=== PATIENT | male | born 1965 | race Caucasian/White ===

== ENCOUNTER → 2023-03-20 09:46 | Outpatient (REF) | payer BC, SELFPAY | LOC: RCS 09:46 | PROVIDERS: ATTENDING PHYSICIAN Internal Medicine Cardiovascular Disease; FAMILY PHYSICIAN Family Medicine | DX: I48.91 Unspecified atrial fibrillation (principal) | CPT/HCPCS: 93017; 93350 ==

== ENCOUNTER 2023-12-30 10:04 | Day surgery (SDC) | payer BC, SELFPAY ==
[2023-12-18 12:07] VITALS: BMI 26.9
[2023-12-18 12:31] LABS: % Eosinophils 1.5 % (0-6); % Immature Granulocytes 0.2 % (0-0.5); % Lymphocytes 40.1 % (20.5-51.1); % Neutrophils 47.2 % (42.2-75.2); Absolute Eosinophils 0.1 10^3/uL (0-0.7); Absolute Lymphocytes 1.6 10^3/uL (1.2-3.4); Absolute Monocytes 0.4 10^3/uL (0.1-0.6); Absolute Neutrophils 1.9 10^3/uL (1.4-6.5); Hematocrit 41.5 % (39.0-52.0); Hemoglobin 14.1 g/dL (13.0-18.0); Mean Corpuscular Volume 94.3 fL (80.0-94.0); Mean Platelet Volume 10.7 fL (7.4-10.4); Nucleated Red Blood Cells % 0 % (-); Platelet Count 149 10^3/uL (130-400); Red Cell Dist. Width 11.9 % (11.5-14.5); White Blood Cell Count 4.1 10^3/uL (4.8-10.8)
[2023-12-18 12:40] LABS: PT 14.3 Sec (11.4-14.6)
[2023-12-18 12:50] LABS: ALT (SGPT) 59 U/L (0-50); AST (SGOT) 46 U/L (17-59); Albumin 4.5 g/dl (3.5-5.0); Alkaline Phosphatase 45 U/L (38-126); Blood Urea Nitrogen 27 mg/dl (9-20); Calcium 10.2 mg/dl (8.4-10.2); Carbon Dioxide 30 mmol/L (22-30); Chloride 101 mmol/L (98-107); Estimated Creatinine Clearance 102 ml/min; Glucose 102 mg/dl (70-99); Potassium 5.1 mmol/L (3.5-5.1); Sodium 141 mmol/L (135-145); Total Bilirubin 0.6 mg/dl (0.2-1.3); Total Protein 7.1 g/dl (6.3-8.2); eGFR > 60.00
[2023-12-30] VITALS (8 sets, daily range): BP systolic 109–140; BP diastolic 66–98; BMI 27.3
[2023-12-30 14:16] LABS: ACT-LR - POC 253 Seconds (116-155)
--- NOTE | 2023-12-30 14:16 | W.PN.UPDATE ---
Update Note
Progress Note Update
58 yo WM s/p PVI (same day). He denies cp, sob, elif diet, b/l groins VASCADE/Manual pressure, EKG SR no ectopy. He will continue OAC Eliquis and bisoprolol. Activity restrictions reviewed. He will f/u Dr. Wyman in 3 mo. He is for d/c home after
330p if groins stable and able to void.
[2023-12-30 14:33] LABS: ACT-LR - POC 297 Seconds (116-155)
--- NOTE | 2023-12-30 14:56 | ITS.CL.ABL ---
[employer] - Ablation
Ablation
Procedure Report:
ELECTROPHYSIOLOGY ABLATION STUDY
�
DATE:: December 30, 2023�����������������������������REFERRING: Dr. Curly Wyman
�
INDICATION: Paroxysmal supraventricular tachycardia in the form of atrial fibrillation.��Prior atrial flutter ablation in 2020 at [facility] and prior AF ablation in 2021 at [facility] with Dr. Canseco presents with recurrent atrial fibrillation and atrial flutter
which is typical appearing
�
HISTORY: See H and P.��As above
�
ANTIARRHYTHMIC DRUG: As above
�
PRE-PROCEDURE BRAN: No interatrial thrombus on intracardiac ultrasound
�
PRESENTING RHYTHM: Sinus bradycardia
�
'TIME-OUT':��called and confirmed.
�
SEDATION/ANESTHESIA:��provided via the anesthesia department using general anesthesia (LMA).
�
INTRAVENOUS/ARTERIAL ACCESS:
Right femoral venous - 8Fr
Left femoral venous - 8 Fr, 6 Fr
Vascade vascular closure for bilateral femoral venous sites was fashioned
Ultrasound guidance for bilateral femoral vein access was utilized by me to obtain access with demonstration of normal anatomy
CHADS-VASC Score:
�
HAS-Bled Score
�
PROCEDURE:
1.��A decapolar CS catheter was placed within the CS for mapping and pacing.��This was also used as the reference catheter for the 3-D map. The patient had prior CTI flutter with clinical recurrence of paroxysmal typical appearing slower atrial
flutter and the isthmus was mapped with the multipolar catheter. This demonstrated an area of breakthrough at the mid isthmus in a moderate pouch with a sequential fractionated signal demarcating breakthrough. At baseline intra isthmus conduction
time of approximately 140 ms. Utilizing radiofrequency energy with a 4 mm tactic cath irrigated catheter at 30 W, 42 degrees and 15 seconds lesions from the mid isthmus back 1 cm towards the IVC persistent bidirectional block intra isthmus
conduction time of 185 ms was fashioned which was durable. After this we then proceeded to transseptal puncture.
�
2. The intracardiac ultrasound catheter was positioned in the RA to identify the FO for targeting of transseptal puncture, assist��in identification of the pulmonary vein ostia, monitoring pre and post ablation pulmonary vein flow velocities,
monitoring for 'bubble' formation during RF application as a sign of thermal injury,��and to monitor for pericardial effusion during mapping and ablation procedure.���Left atrial size, LV ejection fraction, and pulmonary vein flows were monitored
pre and post ablation procedure. The other valves were inspected and found to be free of significant regurgitation or stenosis.
�
3.��Half of the calculated heparin bolus was administered prior to the first transeptal puncture.��Transseptal puncture was performed to diagnose RA and LA pressure so that safety of LA mapping and ablation could be further assessed, and to access
the left atrium and pulmonary veins for mapping and ablation.��This entailed advancing an 14 [place] Contour sheath and dilator needle apparatus was brought into the superior vena cava and withdrawing both (monitoring intracardiac ultrasound,
fluoroscopy and tip pressure) with the tip oriented toward the atrial septum.��The fossa ovalis was engaged (indicated by sudden displacement of the sheath tip as well as tenting of the fossa seen on intracardiac ultrasound).��Left atrial access
required a pass with the Brock[place]rough needle extended.��Left atrial catheter position was confirmed by pressure monitoring (RA mean pressure 8 mm Hg and LA mean presure 14 mm Hg), LA saturation (99%),��as well as fluoroscopy.��The sheath was
advanced over the dilator and positioned in the left atrium.��This procedure was repeated for the Agilis sheath.��The remainder of the calculated heparin bolus was administered and heparin was
infused to maintain ACT at 300 -350 seconds throughout the case.
�
4.��RA pacing was performed via the proximal decapolar poles and LA pacing was performed via the distal decapolr poles.
�
5. A quadrapolar catheter was first positioned at the His position for His Bundle recording which was tagged via the 3-D Navex sytem, and then passed to the RVA for RV pacing and recording.
�
6. 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
portion of the left inferior pulmonary vein, roof of the right superior pulmonary vein and mary of the right inferior pulmonary veins were connected. There was APD triggers from the right superior pulmonary vein.
�
7.��Next, a 3-D map was created using Navex.���A 3-D reconstructed CT image was compared to the 3-D Navex map to assist in anatomic interpretation, mapping and ablation.��The CT image and the NavX image were fused.
�
8. A total of 53 lesions were utilized bring about entrance and exit block in all 4 pulmonary veins with additional lesions given in the posterior wall outside of each vein to extend the lesion set to a wide [place] position. Post ablation no
further arrhythmias were noted.
9. As above the prior CTI flutter ablation line had reconnected and was targeted with ablation with RF energy bring about bidirectional block which was mapped with the multipolar grid and coronary sinus pacing. Intra isthmus conduction time at the
end of the procedure was 185 ms with bidirectional block.
�
TOTAL FLOURO TIME: 20.6 minutes to 20.6 mGy
�
TOTAL RF DURATION: 3 minutes
�
REVERSAL OF HEPARIN: 35 mg of protamine, slow IV administration
�
COMPLICATIONS:
None
Intracardiac US shows no pericardial effusion post ablation.
�
SUMMARY:��
Complex left atrial mapping and ablation.
Isolation of all 4 pulmonary veins as above and CTI flutter ablation addressing the reconnection at the mid isthmus. Transseptal puncture was difficult due to prior transseptal access at prior procedure.
�
RECOMMENDATIONS:
1. Admit to monitored bed.��
2. Resume anticoagulation
3.��Out of bed in 2 hours given vascular closure and can consider same-day discharge
4.��Can discontinue flecainide
�
Copy to: Dr. Himanshu Chakraborty
�
--- NOTE | 2023-12-30 16:03 | W.PN.UPDATE ---
Update Note
Progress Note Update
58 yo WM s/p PVI/CTI flutter ablation (Same day). He denies cp, sob, elif diet, mild sore throat, EKG SR, b/l groins VASCADE c/d/i no HT, soft. He will take his Eliquis at 9pm at home tonight. He will continue bisoprolol. Activity restrictions
reviewed. He will f/u Dr. Wyman in 2mo. He is for d/c home after 6pm if groins stable and voiding.
SUMMARY:��
Complex left atrial mapping and ablation.
Isolation of all 4 pulmonary veins as above and CTI flutter ablation addressing the reconnection at the mid isthmus. Transseptal puncture was difficult due to prior transseptal access at prior procedure.
�
RECOMMENDATIONS:
1. Admit to monitored bed.��
2. Resume anticoagulation
3.��Out of bed in 2 hours given vascular closure and can consider same-day discharge
4.��Can discontinue flecainide
�
Copy to: Dr. Himanshu Chakraborty
== END 2023-12-30 17:45 | disposition home or self-care (01) ==
LOC: CATH 10:04
PROVIDERS: ATTENDING PHYSICIAN Internal Medicine Cardiovascular Disease; OTHER PHYSICIAN Internal Medicine Cardiovascular Disease
DX: I48.91 Unspecified atrial fibrillation (principal); I48.3 Typical atrial flutter; G47.33 Obstructive sleep apnea (adult) (pediatric); I45.10 Unspecified right bundle-branch block; I47.19 Other supraventricular tachycardia; Z79.899 Other long term (current) drug therapy; Z90.49 Acquired absence of other specified parts of digestive tract; Z98.890 Other specified postprocedural states; Z79.01 Long term (current) use of anticoagulants
CPT/HCPCS: C1732; C1894; C1730; C1733; C1769; C2630; C1892; C1759; 36415; 75572; 80053; 83735; 85025; 85610; 86850; 86900; 86901; 93005; 93655; 93656; 93657; C1766; Q9967